=== PATIENT | female | born 1940 | race Caucasian/White ===

== ENCOUNTER 2018-07-04 13:37 | Inpatient (IN) ==
[2018-07-04] MEDS ORDERED: NS 1,000 ML IV ONE ×3 (13:52→19:29)
[2018-07-04] MEDS ORDERED: SODIUM CHLORIDE 0.9% INJ ONE (13:53)
[2018-07-04] MEDS ORDERED: PROTONIX IV ONE (13:53)
--- NOTE | 2018-07-04 14:28 | PROVIDER DOCUMENTATION ---
HPI-General Adult - General Chief Complaint: GI Bleed Stated Complaint: GI bleed Time Seen by Provider: 07/04/18 13:45 Source: patient Allergies/Adverse Reactions: Patient Allergies Allergy/AdvReac Type Severity Reaction Status Date / Time No Known Allergies Allergy Verified 07/04/18 15:18 - History of Present Illness -Gen Adult Nature of Presenting Problems: Pt. is 78 yof that presents with c/o sudden onset of GI bleeding from the mouth and rectum. Pt. also reports lower abd pain. Pt. denies any other symptoms. Pt. has dried blood that is dark in appearance and is around her mouth and on her lower extremities. Location of Pain/Injury: reports: abdomen. denies: none, head, face, mouth, neck, chest, upper extremity, hand(s), back, pelvis, genitalia, lower extremity, feet, upper body, lower body, generalized, other Pain Radiation: reports: no radiation. denies: arm(s), back, buttocks, chest, epigastric, feet, groin, jaw, flank (L), legs (lower), LLQ, LUQ, neck, periumbilical, flank (R), RLQ, RUQ, shoulder(s), scapula, scrotal, sternal notch, suprapubic, legs (upper), urethral, vaginal, other Quality of Pain: reports: aching, cramping. denies: pressure, sharp, tightness Severity: reports: mild. denies: moderate, severe Onset/Duration: reports: abrupt, just prior to arrival Timing: reports: still present. denies: improving, gone now, constant, getting worse Context/Activities at Onset: reports: none. denies: light activity, moderate activity, vigorous activity, recent emotional stress, recent physical stress, recent trauma history, possible bad food, cold exposure, eating, out of country travel, rest, sleep, sexual activity, other Modifying Factors: improves with: nothing Associated Symptoms: reports: diarrhea, vomiting. denies: denies symptoms, anxiety, arm pain, back/neck pain, chest pain, constipation, cough, diaphoresis, dizziness, EENT symptoms, fatigue, fever/chills, genitourinary problems, headaches, heartburn, joint pain, loss of appetite, malaise, muscle aches, sinus congestion/drainage, nausea, rash, seizure, shortness of breath, sensory/motor loss, pain with inspiration, swelling/mass in abdomen, syncope, weakness, trouble walking, other Similar Symptoms Previously?: No Recently seen or treated by another doctor?: No Review of Systems - Adult - REVIEW OF SYSTEMS - ADULT Constitutional: reports: no symptoms reported Eyes: reports: no symptoms reported Ears, Nose, Mouth & Throat: reports: no symptoms reported Cardiovascular: reports: no symptoms reported Respiratory: reports: no symptoms reported Gastrointestinal: reports: see HPI, abdominal pain, hematemesis, rectal bleeding , vomiting. denies: difficulty swallowing, frequent heartburn, nausea Genitourinary: reports: no symptoms reported Musculoskeletal: reports: no symptoms reported Integumentary: reports: no symptoms reported Neurological: reports: no symptoms reported Psychiatric: reports: no symptoms reported Past History - Adult - PAST MEDICAL HISTORY-ADULT Review of Records: reports: Old Records Reviewed, Nursing Assessment Review, Medications Reviewed, Social history reviewed & non-contributory. - IMMUNIZATION STATUS Childhood Immunizations: See Nurse Assessment Flu Vaccine: See Nurse Assessment - FAMILY HISTORY Family History: reviewed, not pertinent - SOCIAL HISTORY Smoking: non-smoker Physical Exam-General - PHYSICAL EXAM-ADULT Initial Vital Signs Reviewed: Yes - CONSTITUTIONAL General Appearance: alert, no apparent distress, obese. negative: thin, anxious, slow to respond, obtunded, combative - EYES Eyes: PERRL/EOMI, pink conjunctivae. negative: photophobia, subconjunctival hemorrhage, sunken eyes - HEAD, EARS, NOSE, MOUTH & THROAT HENMT: normocephalic/atraumatic, moist mucous membranes. negative: angioedema, frontal tenderness, maxillary tenderness - NECK Neck: non-tender, full range of motion, supple, normal inspection. negative: lymphadenopathy, tender lateral, thyromegaly - RESPIRATORY Respiratory: lungs clear, normal breath sounds, increased rate. negative: crackles, rales, rhonchi, stridor, wheezing - CARDIOVASCULAR Cardiovascular: normal peripheral pulses, no edema, no gallop, tachycardia. negative: regular rate, rhythm, friction rub, irregularly irregular - GASTROINTESTINAL (ABDOMEN) Abdominal Exam: normal bowel sounds, soft, tenderness (Lower abdomen). negative: guarding, rigid, rebound, hernia, mass - GENITOURINARY Female Genitalia/Pelvic Exam: deferred Rectal Exam: normal rectal tone, blood streaked stool Hemoccult Exam: heme positive stool - LYMPHATIC Lymphatic: no adenopathy. negative: axilla node tender, cervical node tenderness - MUSCULOSKELETAL Back Exam: normal inspection, no CVA tenderness, no vertebral tenderness. negative: muscle spasm, swelling, vertebral tenderness Extremity: normal gait, normal inspection. negative: deformity, erythema, inflammation, swelling, tenderness Peripheral Pulses: radial (R): 2+, radial (L): 2+ - SKIN Integumentary: normal turgor, warm/dry, pallor. negative: cyanosis, erythema, jaundice, mottled, swelling, tenderness - NEUROLOGIC Neurologic: grossly normal, no motor/sensory deficits. negative: aphasia, focal weakness, motor weakness, sensory deficit - PSYCHIATRIC Psych/Mental Status: normal mood/affect, normal thought content, normal thought process, oriented x 3. negative: anxious, paranoid, tearful Progress - PLAN OF CARE/RESULTS Progress/Plan/Lab Results: Vital Signs - 8 hr 07/04/18 13:43 07/04/18 13:46 07/04/18 13:50 Temperature Pulse Rate 118 H 117 H 115 H Respiratory Rate 28 H 26 H 23 Blood Pressure 115/62 O2 Sat by Pulse Oximetry 07/04/18 13:52 07/04/18 14:00 07/04/18 14:10 Temperature 97.2 F L Pulse Rate 118 H 115 H 115 H Respiratory Rate 18 20 20 Blood Pressure 115/62 O2 Sat by Pulse Oximetry 98 Orders Category Date Time Status Saline Loc NOW Care 07/04/18 13:48 Active Straight Catheterization ORDERED Care 07/04/18 14:21 Active CHEST-PORTABLE [RAD] Stat Exams 07/04/18 13:50 Taken AMYLASE [CHEM] Stat Lab 07/04/18 14:01 Ordered CBC WITH ELECTRONIC DIFF [HEME] Stat Lab 07/04/18 14:01 Ordered COMPREHENSIVE METABOLIC PANEL [CHEM] Stat Lab 07/04/18 14:01 Ordered LIPASE [CHEM] Stat Lab 07/04/18 14:01 Ordered OCCULT BLOOD NON-FECES Stat Lab 07/04/18 13:49 Uncollected OCCULT BLOOD SCREENING [STOOL] Stat Lab 07/04/18 13:49 Uncollected PROTIME WITH INR [COAG] Stat Lab 07/04/18 14:01 Ordered PTT [COAG] Stat Lab 07/04/18 14:01 Ordered TYPE & SCREEN [BBK] Stat Lab 07/04/18 14:04 Ordered URINALYSIS W/POSS RFLX CULT [URINALYSIS] Stat Lab 07/04/18 13:49 Uncollected 0.9% Sodium Chloride Inj [Ns] 1,000 ml Med 07/04/18 13:52 Active IV 125 mls/hr Pantoprazole [Protonix] Med 07/04/18 13:53 Discontinued 40 mg IV NOW ONE Sodium Chloride 0.9% Med 07/04/18 13:53 Discontinued 10 ml INJ NOW ONE EKG [EKG] Stat Ther 07/04/18 13:48 Ordered Laboratory Tests 07/04/18 07/04/18 07/04/18 14:29 14:29 14:40 WBC 15.64 H RBC 3.16 L Hgb 9.9 L Hct 32.0 L MCV 101.3 H MCH 31.3 H MCHC 30.9 L RDW Std Deviation 14.2 Plt Count 335 MPV 10.8 H Immature Gran % (Auto) 0.4 Neut % (Auto) 88.7 H Lymph % (Auto) 7.9 L [place] % (Auto) 2.9 Eos % (Auto) 0.0 Baso % (Auto) 0.1 Immature Gran # (Auto) 0.06 H Neut # (Auto) 13.89 H Lymph # (Auto) 1.23 [place] # (Auto) 0.45 Eos # (Auto) 0.00 Baso # (Auto) 0.01 PT 13.7 INR 0.97 PTT (Actin FS) 23.4 Urine Source CATH Urine Color YELLOW Urine Turbidity CLEAR Urine pH 5.0 Ur Specific [place] 1.023 Urine Protein TRACE A Ur Glucose (Stick) NEGATIVE Ur Ketones (Stick) 10 A Urine Blood NEGATIVE Urine Nitrite NEGATIVE Urine Bilirubin NEGATIVE Urobilinogen Dipstick NORMAL Urine Leukocytes NEGATIVE Urine WBC (Auto) <10 Urine RBC (Auto) <10 U Epithel Cells (Auto) <10 Urine Bacteria (Auto) NEGATIVE Discussed results and plan of care with patient. Patient agrees with plan and verbalizes understanding. Dr. Zavala at bedside for placement of central line. Result Diagrams: 07/04/18 14:29 07/04/18 14:29 - XRAY 1 XRAY Study: Chest ([facility] [address] , [address], [place] [id number] Department of Imaging Patient: JULIETTE ODONNELL Date: 07/04/18#: [id number] : 1940DM Status: REG [facility]#: [id number] Age/Sex: 78/FRoom/Bed: Loc: ED Ordering Physician: Shanique Barry Family Physician: Abhinav Richard MD Reason for Procedure: admit Signed CHEST-PORTABLE - 07/04/2018 INDICATION: admit COMPARISON: None FINDINGS: The lungs are normally expanded and clear. Heart size and mediastinal contours are normal. No pneumothorax or pleural effusion. IMPRESSION: Negative exam. Electronically signed by Wagner Vera 07/04/2018 2:34 PM 07/04/18 1434 Interpreting Physician: Wagner Vera MD Dictated Date/Time: 07/04/18 1430 cc: Shanique Barry; Abhinav Richard MD) XRAY Interpretation: See note - CONSULTS/PCP/HOSPITALIST Notification #1 *Consult/PCP/Hospitalist*: Dr. Melo Time Discussed: 16:43 Reason/Comments: Admission Consult Disposition: Will see in ED, Admit #2 Consult: Dr. Hsu Time Discussed: 16:44 Reason/Comments: Consult Departure - Departure Date of Disposition Decision: 07/04/18 Time of Disposition Decision: 14:39 DIAGNOSIS: GI bleed Qualifiers: GI bleed type/associated pathology: unspecified gastrointestinal hemorrhage type Qualified Code(s): K92.2 - Gastrointestinal hemorrhage, unspecified Acute renal failure Qualifiers: Acute renal failure type: unspecified Qualified Code(s): N17.9 - Acute kidney failure, unspecified Disposition: ADMITTED INPATIENT 09 Certified Medical Emergency: Emergent Condition: Stable Referrals and Follow-Ups: Abhinav Richard MD [Primary Care Provider] - - Critical Care Note This patient required my direct & personal management of CC.: No Attestation - Physician/ KARISSA Attestation Patient care was provided by Advanced Practice Provider:: Yes Advanced Practice Provider:: Shanique Barry Advanced Practice Provider documentation review:: The Mid-level provider documentation, treatment plan and medical decision making was reviewed by the physician who agrees with all treatment and medical decision making by the MLP. The physician spent face to face time with patient:: Yes Advanced Practice Provider documentation review:: Supervising physician onsite and consulted in the evaluation and care of this patient. The physician did have a face to face encounter with the patient.
--- NOTE | 2018-07-04 14:36 | Diag Imaging Result Doc PS360 ---
CHEST-PORTABLE - 07/04/2018 INDICATION: admit COMPARISON: None FINDINGS: The lungs are normally expanded and clear. Heart size and mediastinal contours are normal. No pneumothorax or pleural effusion. IMPRESSION: Negative exam. Electronically signed by Wagner Vera 07/04/2018 2:34 PM
[2018-07-04 14:42] LABS: BASO# 0.01 X1000 (0.0-0.2); BASO% 0.1 % (0.0-0.8); HEMOGLOBIN 9.9 g/dL (12.0-16.0); IMM GRAN# 0.06 X1000 (0.0-0.04); IMM GRAN% 0.4 % (0.0-0.5); LYMPH# 1.23 X1000 (1.2-3.4); LYMPH% 7.9 % (20.5-51.1); MCH 31.3 PG (27-31); MCHC 30.9 g/dL (33-37); MCV 101.3 FL (81-99); MONO# 0.45 X1000 (0.11-0.59); MONO% 2.9 % (1.7-9.3); MPV 10.8 FL (7.4-10.4); NEUT# 13.89 X1000 (1.4-6.5); NEUT% 88.7 % (42.2-75.2); PLT 335 X1000 (130-400); RBC 3.16 XMIL (4.2-5.4); RDW 14.2 % (11.5-14.5); WBC 15.64 X1000 (4.8-10.8)
[2018-07-04 14:48] LABS: URINE SOURCE CATH
[2018-07-04 14:51] LABS: INR 0.97; PROTIME 13.7 Seconds (11.0-16.0); PTT 23.4 Seconds (22.3-41.8)
[2018-07-04 14:54] LABS: BILIRUBIN URINE NEGATIVE (NEGATIVE); BLOOD URINE NEGATIVE (NEGATIVE); COLOR YELLOW; GLUCOSE URINE NEGATIVE (NEGATIVE); KETONE URINE 10 mg/dL (NEGATIVE); LEUKOCYTES URINE NEGATIVE (NEGATIVE); NITRITE URINE NEGATIVE (NEGATIVE); PROTEIN URINE TRACE mg/dL (NEGATIVE); SP GRAVITY URINE 1.023; TURBIDITY URINE CLEAR (CLEAR); UROBILINOGEN URINE NORMAL (NORMAL)
[2018-07-04 14:56] LABS: UR EPITHELIAL CELLS <10 /HPF (<10); URINE BACTERIA NEGATIVE /HPF; URINE RBC <10 /HPF (<10); URINE WBC <10 /HPF (<10)
[2018-07-04 15:33] LABS: ALB/GLOB RATIO 1.5; ALBUMIN 3.3 g/dL (3.5-5.0); CALCIUM 9.7 mg/dL (8.8-10.2); CREATININE 1.8 mg/dL (0.5-0.9); POTASSIUM 4.2 mmol/L (3.5-5.1); TOTAL BILIRUBIN 0.19 mg/dL (0.20-1.00); TOTAL PROTEIN 5.5 g/dL (6.3-8.3)
[2018-07-04] MEDS: PROTONIX 80 MG in NS 80 ML IV SCH (16:00)
[2018-07-04] MEDS ORDERED: MORPHINE IV ONE ×2 (16:21→17:21)
[2018-07-04] MEDS ORDERED: MORPHINE ONE (16:23)
[2018-07-04] MEDS ORDERED: XYLOCAINE 1% INJ ONE (17:05)
[2018-07-04] MEDS ORDERED: XYLOCAINE 1% ONE (17:07)
[2018-07-04] MEDS ORDERED: NEO-SYNEPHRINE ONE (18:58)
[2018-07-04] MEDS ORDERED: SODIUM CHLORIDE 0.9% 20 ML ONE (18:58)
[2018-07-04] MEDS ORDERED: XYLOCAINE-MPF 2% ONE (18:58)
[2018-07-04] MEDS ORDERED: ROBINUL ONE (18:58)
[2018-07-04] MEDS ORDERED: DIPRIVAN 1% ONE (19:01)
[2018-07-04] MEDS ORDERED: ZOFRAN ONE (19:10)
--- NOTE | 2018-07-04 19:11 | Diag Imaging Result Doc PS360 ---
CHEST-PORTABLE - 07/04/2018 6:37 PM INDICATION: central line placement COMPARISON: 2:17 PM FINDINGS: There is a new right subclavian central line in good position with the catheter tip at the lower SVC. The lungs are clear. Heart size is normal. No pneumothorax or pleural effusion. IMPRESSION: No acute disease or complication. Electronically signed by Wagner Vera 07/04/2018 7:09 PM
[2018-07-04] MEDS ORDERED: FENTANYL ONE (19:28)
[2018-07-04] MEDS ORDERED: EPINEPHRINE SYRINGE ONE (19:39)
[2018-07-04] MEDS ORDERED: AMIDATE ONE (20:03)
--- NOTE | 2018-07-04 20:03 | HISTORY AND PHYSICAL ---
CHIEF COMPLAINT: Was throwing up blood and passage of blood. This is a 78-year-old female who has really minimal medical problems I think just high blood pressure. 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 She came in because of sudden onset bleeding from the mouth and rectum, throwing up dark tarry substance and passing black tarry substance. She is on Plavix for a stroke history. No cardiac history that I am aware of. She has no GI issues. Family is not at the bedside and patient is a little bit altered I think just because of hypotension so it is difficult to say. Her workup in the ER consistent with a GI bleed. Her white count is elevated, hemoglobin and hematocrit was 9 and 31. Coags were normal. A little bit of kidney dysfunction. She was admitted for acute GI bleed with shock possibly hemorrhagic. PAST MEDICAL HISTORY: 1. History of CVA. 2. Hypertension. She has not had any admissions here. PAST SURGICAL HISTORY: She again reports the cholecystectomy, she has had orthopedic procedures on both her ankles. SOCIAL HISTORY: No alcohol. No tobacco. Again, she is a retired ER nurse. FAMILY HISTORY: Denies any GI issues. ALLERGIES: No known drug allergies. MEDICATIONS: I do not have a list at this time. REVIEW OF SYSTEMS: No weight loss or no chest pain. She has had some abdominal discomfort mostly in her lower quadrants. She did report the use of Aleve. Otherwise, negative times a 10 point review of systems. PHYSICAL EXAMINATION: VITAL SIGNS: Blood pressure currently 117/69, although dropped to 80/54, heart rate of 106, respiratory rate of 20, temperature was afebrile at 97.2. GENERAL: A pale lady, appears ill and confused, tachycardic. She has dried blood on her lips and actually dark smears on her lower extremities. EYES: Pupils equal, round, reactive to light. Sclerae are anicteric. Extraocular movements were intact. NECK: Supple. PULMONARY: Clear to auscultation bilaterally. GI: Soft, nontender, nondistended. Bowel sounds are positive. She was heme positive per ER exam. NEUROLOGIC: Nonfocal. Cranial nerves 2-12 were grossly intact. MUSCULOSKELETAL: 4/5 in all 4 extremities. She did have 1+ pitting edema in her lower extremities per lymphatic exam. SKIN: She had distinct pallor. LABORATORY DATA: Hemoglobin and hematocrit of 9.9 and 32, white count of 15, platelets 335,000. Coags normal. BUN and creatinine of 78 and 1.8. Alkaline phosphatase 202. Urine was clear. Chest x-ray. She had central line placed. Chest x-ray was clear but we did get just plain films. PROBLEM LIST: This is a 78-year-old female presenting with shock and upper gastrointestinal bleed possibly nonsteroidal anti-inflammatory drugs induced associated with Plavix . 1. Upper gastrointestinal bleed. We have initiated Protonix. She has gotten fluid resuscitation, although it has been limited because of her lack of intravenous access tried multiple times in the emergency room including femoral line placement but could not be placed. We did accomplish central line placement in the emergency room . Dr. Segovia has evaluated the patient. I saw him when I was evaluating the patient and planning for urgent EGD and we will go from there. We will continue supportive care with transfusion and IV resuscitation. Repeat her lactate here this evening. 2. Shock is likely related to low blood pressure and likely blood loss. I do not think per se she has an infection. She does not clearly have an infection in urine or chest x-ray. I think this just may be related to her blood loss. We will continue volume resuscitation and use vasopressors if required. At this point her blood pressure has stabilized. I do not think she has had any transfusion but I anticipate she will need them so we will continue to follow. 3. Hypertension. Obviously at this point we are going to hold any further medications and follow. 4. Anemia likely posthemorrhagic. We will pursue workup and monitor. She is macrocytic so we will check other parameters for any disposition pending her clinical status. I would say she is critically ill with acute hemorrhage shock and needing urgent intervention and 32 minute critical care time. cc: Myke Melo MD
[2018-07-04 20:19] LABS: IRON SATURATION 54 %; TIBC 250 ug/dL; TOTAL IRON 134 ug/dL (49-151); UNBOUND IRON 116 ug/dL (112-346)
[2018-07-04 20:42] LABS: FERRITIN 74 ng/mL (13-150)
[2018-07-04] MEDS ORDERED: TYLENOL PO PRN (20:58)
[2018-07-04 21:02] LABS: RETIC% 2.94 % (0.8-2.1)
[2018-07-04 21:17] LABS: HEMATOCRIT 23.3 % (37.0-47.0); HEMOGLOBIN 7.2 g/dL (12.0-16.0)
--- NOTE | 2018-07-04 22:00 | GASTROENTEROLOGY CONSULTATION ---
DATE: 07/04/2018 REQUESTING PHYSICIAN: Myke Melo MD REASON FOR CONSULT: GI bleed. 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 She presented to the emergency room after she had an episode of hematemesis and melenic stool. The patient tells me that she has not been feeling well since midnight last night, but this morning she had started vomiting. Apparently she had noticed coffee-ground material in it and her found her in a pool of melenic stool and coffee-ground emesis. She was convinced to come to the emergency room after she started feeling dizzy and lightheaded as well. She has been on Mobic, and takes Plavix as well as aspirin for TIAs. She denies any history of peptic ulcer disease, has not had any upper or lower GI bleed. She has never had any EGD or colonoscopies earlier. She reports no fever or chills. She has not had any headache, but did feel weak and dizzy. She has had no chest pain, shortness of breath or palpitations. Denies any cough, sputum or hemoptysis. Denies dysuria, polyuria or hematuria. PAST MEDICAL HISTORY: Significant for hypertension, hypothyroidism and history of CVA. PAST SURGICAL HISTORY: She has had ankle surgery. A kyaw was put in her right femur. Also had history of cholecystectomy, tonsillectomy and adenoidectomy. MEDICATIONS: Prior to hospitalization, she has been on Zyrtec, atorvastatin, Mobic, Valtrex, Welchol, [place], famotidine, Singulair, Plavix. She has also taken Aleve. ALLERGIES: No drug allergies. SOCIAL HISTORY: The patient is and lives with her . She claims she does not drink, does not use illicit drugs. REVIEW OF SYSTEMS: As per HPI as above. PHYSICAL EXAMINATION: On examination, very pleasant white female, appears to be slightly distressed. She had just had a central line placed for IV axis. Vital signs: On presentation to the emergency room she was afebrile. Her temperature was 97.2 degrees, pulse was 118 per minute, breathing 18, blood pressure was 115/62. She is 5 feet 4 inches tall. She is 165 pounds. In the ER her blood pressure dropped to 81/54, requiring fluid resuscitation. Head is atraumatic, normocephalic. Eyes: Conjunctivae is pale. Sclerae anicteric. Nares are patent. No discharge. Mouth: Buccal mucosa is dry and has some dried blood on oral mucosa. Neck is supple. No lymphadenopathy or thyromegaly. Chest bilaterally symmetrical. It is moving with respirations. She has harsh breath sounds bilaterally. The central line is placed in the right subclavian area. No rhonchi could be heard. Heart sounds are audible. No murmur. Abdomen is full, soft. It is nontender. I could not appreciate any masses or organomegaly. No ascites noted. Bowel sounds are audible. No pedal edema, cyanosis or clubbing was noted. [employer] is grossly intact. No sensory or motor deficit. LABORATORY DATA: Labs reviewed, which showed WBC of 15.64, hemoglobin 9.9, hematocrit 32.0, MCV 101.3, platelets were 335,000. PT was 13.7, INR 0.97, PTT 23.4. Sodium 140, potassium 4.2, chloride 103, bicarbonate 22, BUN is 78, creatinine 1.8, glucose 189. Transaminases normal. Urinalysis was negative. DIAGNOSTIC DATA: Chest x-ray: Central line was in place, and otherwise nothing acute was noted. IMPRESSION AND PLAN: This is a 78-year-old white female who has been taking Plavix and Mobic. Takes Aleve on top of that. She has presented with a history of hematemesis, coffee-ground emesis and melenic stool. She was hemodynamically unstable and hemoglobin and hematocrit were found to be 9.9 in 32.0. Most likely she has upper gastrointestinal bleed. Has had significant blood loss, resulting in her hemodynamic instability. At this point she does not seem to be actively bleeding. She appears to be stabilized some after hydration. Her hemoglobin and hematocrit needs to be drawn since her hydration. Because of her sudden drop and hemodynamic instability, I would proceed with an urgent esophagogastroduodenoscopy for therapeutic purposes. In the meantime, she has already been started on a Protonix drip. I would continue that, and depending on the findings of her esophagogastroduodenoscopy further plans will be made. I have explained the findings and plan to the patient. The risks, benefits and alternatives of esophagogastroduodenoscopy were explained. She understood and agreed to proceed. She will be scheduled as soon as possible. cc: MD Myke Anderson MD Akram Haggag, MD
--- NOTE | 2018-07-04 22:11 | Diag Imaging Result Doc PS360 ---
ABDOMEN FLAT/UPRIGHT - 07/04/2018 INDICATION: pain COMPARISON: None FINDINGS: There is a right subclavian central venous line in good position. The lungs are fairly clear. There are cholecystectomy clips. There is a nonobstructive bowel gas pattern. No free air or abnormal calcifications. IMPRESSION: No acute disease. Electronically signed by Wagner Vera 07/04/2018 10:08 PM
--- NOTE | 2018-07-04 22:23 | OPERATIVE NOTE ---
PROCEDURE DATE: 07/04/2018 PROCEDURE: EGD, hemorrhage control and biopsy. PREOPERATIVE DIAGNOSIS: 1. Acute gastrointestinal bleed. 2. Anemia secondary gastrointestinal bleed. POSTOPERATIVE DIAGNOSIS: Gastric ulcers, gastric ulcer with visible vessel treated. Biopsy done. MEDICATION USED: MAC as per Anesthesia. SCOPE: Pentax gastroscope. BLOOD LOSS: Was less than 1 mL. HISTORY: This is a 78-year-old white female presented to the ER with a history of hematemesis, coffee-grounds emesis and melenic stool was found to be anemic. She has been on Plavix, Mobic and Aleve. She was hemodynamically unstable. EEG is being done for diagnostic as well as therapeutic purposes after stabilization. PROCEDURE: Informed consent obtained from the patient. The procedure, risks, benefits, alternatives were explained in layman's terms. She understood. All her pertinent questions were answered. Patient was brought to the endoscopy unit and was premedicated as per Anesthesia. After adequate sedation while she was lying in left lateral position the gastroscope was introduced into the posterior pharynx and advanced under direct vision into the esophagus. Esophagus in its entire length appeared to be normal. GE junction was noted at about 40 cm from the incisor. No esophagitis, webs, rings, varices were seen. Scope was then passed through the esophagus into the stomach. Stomach was examined both in straight and retroflexed view which showed small amounts of altered blood adherent to the gastric mucosa. Vigorous irrigation and suctioning was employed to cleanse the stomach completely and to visualize the gastric mucosa. The cardia, fundus and body appeared to be normal in the antrum however 3 ulcers were seen, 1 in the superior aspect and 2 on the inferior aspect of the antrum along the greater curve. The ulcers were clean based punched-out except for 1 on the anterior aspect had a visible vessel noted at the edge of the ulcer. There was no active bleeding seen. Using a sclerotherapy needle 1:10,000 epinephrine was injected aliquots of 0.5 mL. A total of 1 mL were injected getting good blanching there. After that using a monopolar wire the vessel was cauterized by applying cautery. Good crater was formed. No bleeding was noted. After that the scope was then passed through the pylorus into the duodenal bulb and then to 2nd portion duodenum which appeared to be normal. No ulcer, AVM or masses were seen in the duodenum. The scope was then removed. Patient tolerated the procedure well. No complications were noted and the patient was transferred to recovery area in a stable condition. IMPRESSION: Three gastric ulcers ranging from 8 mm to about 2 cm. One ulcer had visible vessel which was treated with epinephrine and cautery. Biopsies were obtained to check for Helicobacter pylori and neoplasia. RECOMMENDATIONS: 1. I will continue her on Protonix drip. 2. Recheck hemoglobin and hematocrit transfuse if necessary. 3. Continue hemodynamic resuscitation. 4. Follow up the biopsy report. If Helicobacter pylori is positive will treat. In the meantime, I will hold Plavix and aspirin along with her Mobic and advised no Aleve and later on will start her back on aspirin alone and Plavix at a later date. However would strongly recommend to avoid Mobic and Aleve altogether if possible. I have explained the findings and plan to the patient's who was present bedside. He understood, all his pertinent questions answered. cc: MD Myke Queen MD MTDD
[2018-07-05] MEDS: NS 1,000 ML IV SCH ×2 (00:39→08:53)
[2018-07-05] MEDS: PROTONIX 80 MG in NS 80 ML IV SCH ×4 (00:41→22:53)
[2018-07-05] MEDS ORDERED: NEO-SYNEPHRINE 50 MG in NS 250 ML IV SCH (02:45)
[2018-07-05 04:11] LABS: BASO# 0.01 X1000 (0.0-0.2); BASO% 0.1 % (0.0-0.8); EOS# 0.01 X1000 (0.0-0.7); EOS% 0.1 % (0.0-10.0); HEMATOCRIT 28.3 % (37.0-47.0); IMM GRAN# 0.04 X1000 (0.0-0.04); IMM GRAN% 0.3 % (0.0-0.5); LYMPH# 1.82 X1000 (1.2-3.4); LYMPH% 15.3 % (20.5-51.1); MCHC 31.8 g/dL (33-37); MCV 97.6 FL (81-99); MONO# 1.21 X1000 (0.11-0.59); MONO% 10.2 % (1.7-9.3); MPV 10.5 FL (7.4-10.4); NEUT# 8.77 X1000 (1.4-6.5); PLT 143 X1000 (130-400); RDW 15.8 % (11.5-14.5); WBC 11.86 X1000 (4.8-10.8)
[2018-07-05 04:41] LABS: ALB/GLOB RATIO 1.6; ALBUMIN 2.4 g/dL (3.5-5.0); CALCIUM 7.1 mg/dL (8.8-10.2); CREATININE 1.5 mg/dL (0.5-0.9); POTASSIUM 4.2 mmol/L (3.5-5.1); TOTAL BILIRUBIN 0.2 mg/dL (0.20-1.00); TOTAL PROTEIN 3.9 g/dL (6.3-8.3)
[2018-07-05 06:59] LABS: HEMATOCRIT 30.6 % (37.0-47.0); HEMOGLOBIN 9.7 g/dL (12.0-16.0)
[2018-07-05] MEDS ORDERED: DOPAMINE 400 MG/D5W 400 MG/500 ML IV.SOLN IV SCH (08:30)
[2018-07-05] MEDS: D5 1/2 NS 1,000 ML IV SCH ×2 (11:18→18:33)
--- NOTE | 2018-07-05 11:52 | PROGRESS NOTE ---
DATE: 07/05/2018 SUBJECTIVE: She seems to be doing okay today. OBJECTIVE: Blood pressure is 85/46, although currently I think were blood pressure of 101/49, heart rate of 85, respiratory rate of 24, saturations of 93%. Clinically, she seems to be doing okay; blood pressure is still on the low side. DIAGNOSTIC STUDIES: Hemoglobin and hematocrit have stabilized after transfusion, which I think she has gotten 2 units of blood. She had several gastric ulcers with visible vessel. PROBLEM LIST: 1. Acute gastrointestinal (GI) bleed with multiple ulcers including one with a visible vessel, multiple gastric ulcers. She is currently on a PPI. We are continuing supportive care, transfusion, crystalloid hydration, and we will follow. Greatly appreciate Dr. Segovia's urgent care. He evaluated the patient last night and did an endoscopy last night. 2. Shock likely related to hemorrhage. She is not on pressors currently, but may require them. 3. Acute kidney injury. Likely related to dehydration. We will continue hydration and follow closely. May get an abdominal ultrasound tomorrow just to see if there are any issues with her kidneys, but I think it is probably related to that and possibly NSAIDs. 4. Anemia associated with acute gastrointestinal (GI) bleed. We will continue to monitor closely. Her anemia parameters are all normal so it is likely just an acute bleed. 5. Bradycardia. Unclear what her source is. She was a bit bradycardic yesterday, maybe related to her shock state. I will get an echocardiogram, and we will continue to follow. Again, dopamine if required. DISPOSITION: Pending her clinical status. cc: Myke Melo MD
[2018-07-05 11:56] LABS: HEMATOCRIT 29.6 % (37.0-47.0); HEMOGLOBIN 9.2 g/dL (12.0-16.0)
--- NOTE | 2018-07-05 13:08 | GASTROENTEROLOGY PROGRESS NOTE ---
DATE: 07/05/2018 SUBJECTIVE: Patient has had no further signs of bleeding. An EGD was done last evening, 07/05/2018. Findings of 3 gastric ulcers. One ulcer had a visible vessel that was treated. Biopsies are pending. OBJECTIVE: Vital Signs: Temperature 97.4 degrees, pulse 76, respirations 21, blood pressure 97/38. General: Patient is awake, alert, no acute distress. LABORATORY: Hematology 11.86, hemoglobin 9, hematocrit 28.3, MCV 97.6, platelet 143,000. Chemistry: Sodium 149, potassium 4.2, chloride 120, CO2 20, BUN 67, creatinine 1.5, glucose 109. ASSESSMENT AND PLAN: 1. Gastrointestinal bleed. 2. Gastric ulcers with visible vessel treated. PLAN: Continue to monitor hemoglobin and hematocrit. Monitor for any further active bleeding. Continue proton pump inhibitor. Recommend to avoid Aleve and Mobic. Continue to hold Plavix and aspirin for now. Further plans to be made according to her progress. I have discussed this case with Dr. Segovia. Dictated by NIKHIL Benítez for Dewey Segovia MD cc: NIKHIL Moeller MD Alexis R. Penot, MD
[2018-07-05 15:10] LABS: UR PROT RANDOM 15.6 mg/dL
[2018-07-05 17:34] LABS: HEMOGLOBIN 8.3 g/dL (12.0-16.0)
[2018-07-05] MEDS ORDERED: DOPAMINE 800 MG/D5W 800 MG/500 ML IV.SOLN IV SCH (21:15)
[2018-07-05] MEDS: NORCO-10 PO SCH (22:39)
[2018-07-05 23:57] LABS: HEMATOCRIT 27.7 % (37.0-47.0); HEMOGLOBIN 8.6 g/dL (12.0-16.0)
[2018-07-06] MEDS: D5 1/2 NS 1,000 ML IV SCH ×3 (03:26→19:37)
[2018-07-06] MEDS: NORCO-10 PO SCH (04:52)
[2018-07-06 06:38] LABS: BASO# 0.02 X1000 (0.0-0.2); BASO% 0.2 % (0.0-0.8); EOS# 0.25 X1000 (0.0-0.7); EOS% 2.9 % (0.0-10.0); HEMATOCRIT 27.2 % (37.0-47.0); HEMOGLOBIN 8.4 g/dL (12.0-16.0); IMM GRAN# 0.04 X1000 (0.0-0.04); IMM GRAN% 0.5 % (0.0-0.5); LYMPH# 1.49 X1000 (1.2-3.4); LYMPH% 17.1 % (20.5-51.1); MCH 30.3 PG (27-31); MCHC 30.9 g/dL (33-37); MCV 98.2 FL (81-99); MONO# 0.75 X1000 (0.11-0.59); MONO% 8.6 % (1.7-9.3); MPV 10.9 FL (7.4-10.4); NEUT# 6.17 X1000 (1.4-6.5); NEUT% 70.7 % (42.2-75.2); PLT 140 X1000 (130-400); RBC 2.77 XMIL (4.2-5.4); RDW 16.4 % (11.5-14.5); WBC 8.72 X1000 (4.8-10.8)
--- NOTE | 2018-07-06 06:54 | EKG Report ---
Test Performed on : 07/05/2018 08:42:06 AM Test Reason : bradycardia Blood Pressure : / mmHG Vent. Rate : 082 BPM Atrial Rate : 082 BPM P-R Int : 204 ms QRS Dur : 062 ms QT Int : 412 ms P-R-T Axes : 041 -15 181 degrees QTc Int : 481 ms Normal sinus rhythm. Low voltage QRS T wave abnormality, consider anterior ischemia Prolonged QT Abnormal ECG When compared with ECG of 04-JUL-2018 21:15, (Unconfirmed) Nonspecific T wave abnormality has replaced inverted T waves in Lateral leads Unconfirmed Result
[2018-07-06 07:08] LABS: CALCIUM 7.1 mg/dL (8.8-10.2); MAGNESIUM 1.4 mg/dL (1.5-2.7); PHOSPHORUS 2.3 mg/dL (2.7-4.5); POTASSIUM 3.3 mmol/L (3.5-5.1)
--- NOTE | 2018-07-06 07:33 | EKG Report ---
Test Performed on : 07/04/2018 9:15:22 PM Test Reason : Admit Blood Pressure : / mmHG Vent. Rate : 095 BPM Atrial Rate : 095 BPM P-R Int : 162 ms QRS Dur : 060 ms QT Int : 362 ms P-R-T Axes : 043 -01 147 degrees QTc Int : 454 ms Normal sinus rhythm. ST & T wave abnormality, consider anterolateral ischemia Abnormal ECG No previous ECGs available Unconfirmed Result
--- NOTE | 2018-07-06 07:43 | Diag Imaging Result Doc PS360 ---
CHEST-PORTABLE - 07/06/2018 INDICATION: dyspnea COMPARISON: 07/04/2018 FINDINGS: Stable right central line. There is a trace left pleural effusion. No significant infiltrates. Heart size is normal. There is pulmonary vascular congestion. IMPRESSION: Trace left pleural effusion. Mild pulmonary vascular congestion. Electronically signed by Wagner Vera 07/06/2018 7:40 AM
[2018-07-06] MEDS: PROTONIX 80 MG in NS 80 ML IV SCH ×2 (08:17→17:43)
[2018-07-06] MEDS ORDERED: MAGNESIUM SULFATE 2 GM/S.W.I. 2 GM/50 ML IVPB IV ONE (10:15)
[2018-07-06] MEDS ORDERED: NS 500 ML IV SCH (10:15)
[2018-07-06] MEDS ORDERED: POTASSIUM CHLORIDE 40 MEQ/SWI 40 MEQ/100 ML IVPB IV ONE (10:15)
[2018-07-06] MEDS ORDERED: POTASSIUM PHOSPHATE 40 MEQ in NS 250 ML IV ONE (10:17)
[2018-07-06] MEDS ORDERED: NS 500 ML ONE (10:18)
[2018-07-06] MEDS: NORCO-10 PO PRN ×2 (10:33→15:33)
--- NOTE | 2018-07-06 10:37 | EKG Report ---
Test Performed on : 07/06/2018 10:31:45 AM Test Reason : bradycardia/hypotension Blood Pressure : / mmHG Vent. Rate : 071 BPM Atrial Rate : 071 BPM P-R Int : 156 ms QRS Dur : 068 ms QT Int : 410 ms P-R-T Axes : 042 018 104 degrees QTc Int : 445 ms Normal sinus rhythm. T wave abnormality, consider anterior ischemia Abnormal ECG When compared with ECG of 05-JUL-2018 08:42, (Unconfirmed) No significant change was found Unconfirmed Result
[2018-07-06] MEDS: NS 500 ML IV SCH (10:41)
[2018-07-06 12:23] LABS: HEMATOCRIT 27.2 % (37.0-47.0); HEMOGLOBIN 8.5 g/dL (12.0-16.0)
--- NOTE | 2018-07-06 13:03 | GASTROENTEROLOGY PROGRESS NOTE ---
DATE: 07/06/2018 SUBJECTIVE: Patient denies any visible bleeding. Per nurse, she has had hypotension and bradycardia. Cardiology consult has been placed. Patient had an EGD on 07/04/2018 with gastric ulcers and a visible vessel treated. OBJECTIVE: Vital Signs: Temperature 97.1 degrees, pulse 60, respirations 19, blood pressure 107/45. General: The patient is awake and alert, in no acute distress. Abdomen: Soft. Positive bowel sounds. Nontender. She does complain of flank tenderness to bilateral sides. Laboratory: Hematology: WBC 8.72, hemoglobin 8.4, hematocrit 27.2, MCV 98.2. Chemistry: Sodium 145, potassium 3.3, chloride 116, CO2 20, BUN 32, creatinine 1.0, glucose 113. ASSESSMENT AND PLAN: 1. Acute gastrointestinal bleeding with multiple ulcers and a visible vessel treated. Continue proton pump inhibitor. 2. Acute kidney injury. Continue fluids. 3. Anemia. Continue to monitor. 4. Bradycardia and hypotension, cardiology consulted. We will continue to follow along during her hospital course. Further plans to be made according to her progress. There has been no evidence of active bleeding since the procedure. I have discussed this case with Dr. Segovia. Dictated by NIKHIL Benítez for Dewey Segovia MD cc: NIKHIL Moeller MD [facility]
[2018-07-06] MEDS: LASIX IV SCH (13:04)
[2018-07-06 13:08] LABS: URINE SOURCE CLEAN CATCH
[2018-07-06 13:13] LABS: BILIRUBIN URINE NEGATIVE (NEGATIVE); BLOOD URINE TRACE (NEGATIVE); COLOR STRAW; GLUCOSE URINE NEGATIVE (NEGATIVE); KETONE URINE NEGATIVE (NEGATIVE); LEUKOCYTES URINE SMALL (NEGATIVE); NITRITE URINE NEGATIVE (NEGATIVE); PROTEIN URINE NEGATIVE (NEGATIVE); SP GRAVITY URINE 1.003; TURBIDITY URINE CLEAR (CLEAR); UROBILINOGEN URINE NORMAL (NORMAL)
[2018-07-06 13:14] LABS: UR EPITHELIAL CELLS <10 /HPF (<10); URINE BACTERIA NEGATIVE /HPF; URINE RBC <10 /HPF (<10)
--- NOTE | 2018-07-06 13:15 | CARDIOLOGY CONSULTATION ---
DATE: 07/06/2018 CHIEF COMPLAINT: Abdominal flank pain, hypogastric discomfort. REASON FOR CONSULTATION: Bradycardia, hypotension. HISTORY: Ms. Nolan is a 78-year-old, female who presented to the hospital on July 04 at 1:40 p.m. complaining of a syncopal episode associated with a massive gastrointestinal bleed. The patient says that she woke up, finding herself covered in blood. Her brought her to the emergency room. Initial evaluation showed a hemoglobin level of 9.9 and then dropping to 7.2. She has been given 2 units of blood. She underwent endoscopy by Dr. Segovia on July 04 which shows evidence of a gastric ulcer with a visible vessel treated, biopsy done. Subsequently, the patient has become hypotensive and relatively bradycardic. She has been given pain medications by mouth. She denies having any chest pain or upper abdominal pain. Her pain started last night. It is at the level of the flank and it radiates to the hypogastric area. PAST MEDICAL HISTORY: Positive for a stroke that affected her visual field on the left side. That happened some time ago. She has hypertension. She does have hyperlipidemia. SURGICAL HISTORY: She just had a right thigh orthopedic procedure done at [facility]. She has had a cholecystectomy in the past. She had ankle surgery in the past. SOCIAL HISTORY: She is and retired. 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 Not a smoker. FAMILY HISTORY: Noncontributory. ALLERGIES: Negative. HOME MEDICATIONS: She had been taking clopidogrel since the stroke, Lipitor 80 daily, cetirizine 10 mg daily, hydrocodone, meloxicam, montelukast, as well as acyclovir, famotidine, and Welchol. REVIEW OF SYSTEMS: Other than what I have described, noncontributory. She has been using a walker at home to get around. She is supposed to go for physical therapy to recover from the orthopedic procedure. I do not have any specifics as to what was done but she says that they placed a kyaw in the thigh. PHYSICAL EXAMINATION: Vital Signs: Blood pressure 130/43, pulse 66, temperature 97.1 degrees, respirations 11. General: She is awake, alert. Somewhat pale. There are some bruises on the upper extremities. She has a central line in the right subclavian site. HEENT: Unremarkable. Chest: Clear to auscultation and percussion. Heart: Heart sounds regular and rhythmic. I do not hear a gallop or murmur. Abdomen: Nontender. Extremities: Showed no edema. Neurological Examination: Follows commands. Moves 4 extremities. Blood Work: They just nilo a followup hemoglobin. Her last one done at 5:44 this morning was 8.4 g percent. White cell count 8720. Sodium 145, potassium 3.3, BUN 32, creatinine 1.0. Magnesium was 1.4, phosphorus 2.3. I believe Dr. Melo has put orders to replace magnesium. IMPRESSION: 1. Patient who presents with gastrointestinal bleeding, gastric ulcer treated by Dr. Segovia 2 days ago. She has anemia secondary to gastrointestinal bleeding. I suspect the hypotension is also secondary to the same. She is probably hypovolemic. 2. Bradycardia. The reason for this is unclear. She does have an abnormal electrocardiogram that shows diffuse repolarization abnormality. However, her electrolytes are abnormal. 3. She has also been given opiates which can cause bradycardia. 4. Hyperlipidemia. 5. Hypertension. 6. Previous stroke. That increases her risk for cardiovascular disease. RECOMMENDATION: At this time, I will suggest to get an echocardiogram. We will do a CT of the abdomen with oral contrast. I am concerned that she may have had also a retroperitoneal hematoma. We will follow up EKG in the morning. Further advice will be forthcoming. cc: Edgardo Estrella MD [facility]
--- NOTE | 2018-07-06 13:23 | OPERATIVE NOTE ---
PROCEDURE DATE: 07/04/2018 INDICATION: IV access PROCEDURE: Right subclavian central line placement. We were unable to get IV access femoral veins were attempted for IV access central line placement but could not be obtained. DESCRIPTION OF PROCEDURE: The patient was prepped in sterile fashion. Procedure was could considered to be emergent because she was hypotensive and actively having a GI bleed. The patient underwent central line placement after local anesthesia with 1% lidocaine. We were able to cannulate the vessel after 1 pass. Blood flow was fairly sluggish though even in Trendelenburg. Triple-lumen was passed under modified Seldinger technique. Good venous return from all ports although again a little bit sluggish because of her low blood volume and hypotension. Chest x-ray confirmed placement. The patient tolerated the procedure without difficulty. cc: Myke Melo MD
[2018-07-06 13:33] LABS: CK INDEX 1.1 (0.0-2.5); CK-MB 2.21 ng/mL (0.0-5.0)
--- NOTE | 2018-07-06 14:46 | Diag Imaging Result Doc PS360 ---
EXAM: CT ABD/PELVIS W/ORAL CONT ONLY INDICATION: intraabdominal bleed/hypotension/ TECHNIQUE: This exam was performed using automated exposure control, adjustment of mA or kV according to patient size, and/or use of iterative reconstruction technique. COMPARISON: None. FINDINGS: There are small bilateral pleural effusions and there is bibasilar atelectasis. There has been a prior cholecystectomy. There is a tiny low dense focus at the inferior aspect of the left hepatic lobe, nonspecific but possibly a tiny cyst. The liver is essentially unremarkable, otherwise. The spleen, pancreas, and adrenal glands are grossly unremarkable. There is mild bilateral pelvocaliectasis versus parapelvic cysts associated with both kidneys there are no renal or ureteral stones and there is no dilation of the ureters. The urinary bladder is unremarkable. The reproductive tract is unremarkable as imaged. There is trace free fluid layering in the pelvis that is nonspecific. There is a very small hiatal hernia. No focal bowel wall thickening is identified and there is no evidence of bowel obstruction. The remainder of the GI tract is essentially unremarkable. There is no free abdominal gas identified. There are somewhat dilated subcutaneous varices at the anterior aspect of the lower pelvis. There is an L1 vertebral body compression deformity that is probably chronic. IMPRESSION: 1.Trace nonspecific free fluid layering in the pelvis. 2.Bilateral small pleural effusions and bibasilar atelectasis. 3.Mildly dilated renal collecting system versus parapelvic cysts bilaterally. This is probably chronic. 4.Other incidental/nonacute findings detailed above. Electronically signed by Rylan Lundberg 07/06/2018 2:44 PM
--- NOTE | 2018-07-06 16:15 | Diag Imaging Result Doc PS360 ---
EXAM: US ABDOMEN-COMPLETE INDICATION: gi bleed, renal failure COMPARISON: None. FINDINGS: There has been a prior cholecystectomy. The common bile duct is normal in diameter. The liver is grossly unremarkable. Portal venous flow is hepatopetal. The visualized pancreas is unremarkable. The aorta and IVC are grossly unremarkable. The spleen is unremarkable. The remaining collecting systems are mildly dilated bilaterally. This was also seen on a CT performed earlier today. The acuity is uncertain but it is probably chronic. The kidneys are unremarkable, otherwise. IMPRESSION: Bilateral mildly prominent renal collecting systems of unknown acuity but probably chronic. Grossly unremarkable, otherwise. Electronically signed by Rylan Lundberg 07/06/2018 4:13 PM
--- NOTE | 2018-07-06 21:55 | ECHO REPORT ---
ORDER DATE: 07/05/2018 MEASUREMENTS: 1. Left ventricular internal diameter in diastole 5.4. 2. End-systolic 3.6. 3. Septal thickness 1.0. 4. Left atrium 2.2. 5. Aortic root 3.3. SUMMARY: 1. Technically difficult study due to limited acoustic window quality. 2. Aortic valve without evidence of structural abnormality and appears to open adequately on 2- dimensional images. Peak gradient across the aortic valve is less than 10 mmHg. Mitral and tricuspid valves are without evidence of structural abnormality while pulmonic valve is not well demonstrated. There is trace mitral regurgitation, very mild tricuspid regurgitation. The estimated systolic PA pressure by Doppler is 25 mmHg. Aortic root is normal in size. 3. Normal left ventricular dimensions suggested. Estimated left ventricular ejection fraction appears to be at least 60%. No obvious regional wall motion abnormality can be appreciated. Left atrium appears mildly enlarged on 2-dimensional images. Right atrium and right ventricle are normal in size with grossly preserved right ventricular systolic function. 4. No pericardial effusion. 5. Appearance of inferior vena cava suggests normal central venous pressure. cc: MD Myke Lamas MD
[2018-07-07] MEDS: LASIX IV SCH ×2 (01:27→14:12)
[2018-07-07] MEDS: PROTONIX 80 MG in NS 80 ML IV SCH ×2 (03:54→13:26)
[2018-07-07] MEDS: D5 1/2 NS 1,000 ML IV SCH (03:54)
[2018-07-07] MEDS: ZOFRAN IV PRN ×2 (05:28→10:35)
[2018-07-07] MEDS: NORCO-10 PO PRN ×2 (05:29→23:02)
[2018-07-07 05:49] LABS: BASO# 0.01 X1000 (0.0-0.2); BASO% 0.2 % (0.0-0.8); EOS# 0.62 X1000 (0.0-0.7); EOS% 9.8 % (0.0-10.0); HEMATOCRIT 28.8 % (37.0-47.0); HEMOGLOBIN 9.1 g/dL (12.0-16.0); IMM GRAN# 0.04 X1000 (0.0-0.04); IMM GRAN% 0.6 % (0.0-0.5); LYMPH% 15.7 % (20.5-51.1); MCH 30.2 PG (27-31); MCHC 31.6 g/dL (33-37); MCV 95.7 FL (81-99); MONO# 0.47 X1000 (0.11-0.59); MONO% 7.4 % (1.7-9.3); MPV 10.1 FL (7.4-10.4); NEUT# 4.21 X1000 (1.4-6.5); NEUT% 66.3 % (42.2-75.2); PLT 142 X1000 (130-400); RBC 3.01 XMIL (4.2-5.4); RDW 15.3 % (11.5-14.5); WBC 6.35 X1000 (4.8-10.8)
[2018-07-07 07:49] LABS: CALCIUM 7.6 mg/dL (8.8-10.2); POTASSIUM 3.2 mmol/L (3.5-5.1)
--- NOTE | 2018-07-07 07:55 | EKG Report ---
Test Performed on : 07/07/2018 06:49:14 AM Test Reason : bradycardia/abnormal ECG Blood Pressure : / mmHG Vent. Rate : 073 BPM Atrial Rate : 073 BPM P-R Int : 172 ms QRS Dur : 066 ms QT Int : 420 ms P-R-T Axes : 056 -07 133 degrees QTc Int : 462 ms Normal sinus rhythm. T wave abnormality, consider anterolateral ischemia Abnormal ECG When compared with ECG of 06-JUL-2018 10:31, No significant change was found Unconfirmed Result
[2018-07-07] MEDS ORDERED: D5 1/4 NS 1,000 ML IV SCH (10:00)
[2018-07-07] MEDS: NS 500 ML IV SCH (10:05)
--- NOTE | 2018-07-07 14:26 | GASTROENTEROLOGY PROGRESS NOTE ---
DATE: 07/07/2018 SUBJECTIVE: Patient states she feels a little better than she did yesterday. She continues to have dopamine infusing for hypotension. She had an EGD on 07/04/2018 that showed gastric ulcers with a visible vessel, treated. Hemoglobin and hematocrit are stable today. OBJECTIVE: Vital Signs: Temperature 98.5 degrees, pulse 63, respirations 19, blood pressure 95/44. General: Patient is awake, alert, no acute distress. LABORATORY: Hematology: WBC 6.35, hemoglobin 9.1, hematocrit 28.8, MCV 95.7, platelet 142,000. Chemistry: Sodium 146, potassium 3.2, chloride 112, CO2 23, BUN 12, creatinine 1.0, glucose 104. ASSESSMENT AND PLAN: 1. Acute gastrointestinal bleeding with multiple ulcers and a visible vessel, treated. Continue proton pump inhibitor. Continue to monitor for any further signs of active bleeding. Monitor hemoglobin and hematocrit. 2. Acute kidney injury has improved. 3. Anemia is stable. Will continue to follow. 4. Bradycardia and hypotension. Patient has been seen by Cardiology. She also has dopamine infusing. 5. We will continue to follow during her hospital course. 6. Further plans will be made according to her progress. Continue PPI. Avoid NSAIDs. I have discussed this case with Dr. Segovia. Dictated by NIKHIL Benítez for Dewey Segovia MD cc: NIKHIL Moeller MD
[2018-07-07] MEDS ORDERED: PROTONIX IV SCH (15:16)
[2018-07-07] MEDS: SODIUM CHLORIDE 0.9% INJ SCH (15:59)
[2018-07-07] MEDS: PROTONIX IV SCH (15:59)
--- NOTE | 2018-07-07 19:03 | CARDIOLOGY PROGRESS NOTE ---
DATE: 07/07/2018 CHIEF COMPLAINT: Hypotension, tachycardia. SUBJECTIVE: Ms. Nolan has no complaints. She is feeling better. She is still requiring a tiny dose of dopamine. OBJECTIVE: Vital Signs: Blood pressure is 115/50, pulse 72, respirations 25, temperature 98.6. General: She is awake, alert and somewhat pale, in no distress. HEENT: Unremarkable. Chest: Clear to auscultation and percussion. Cardiovascular: Heart sounds regular and rhythmic. No click, gallop or murmur. Abdomen: Nontender and soft. No masses or hepatomegaly. Extremities: Show good pulses. No peripheral edema. Neurologic: Follows commands. Moves all 4 extremities. BLOOD WORK: Sodium 146, potassium 3.2, BUN 12, creatinine 1.0. White cell count 6350, hemoglobin 9.1, hematocrit 28.8. DIAGNOSTIC DATA: Echocardiogram from yesterday shows normal left ventricular systolic function. Pulmonary pressure is normal. The inferior vena cava is not dilated. There is no pericardial effusion. Pelvis/abdomen CT shows trace nonspecific free fluid layering in the pelvis. Of note, the density of the fluid is greater than just a simple effusion. Could be blood. There are bilateral small pleural effusions. Mildly dilated renal collection system versus parapelvic cysts bilaterally, probably chronic. The surgical specimen from the biopsy of the stomach showed chronic active gastritis with ulceration. EKG done today showed sinus rhythm with a nonspecific T- wave abnormality in the precordial leads. IMPRESSION: 1. Patient who suffered acute anemia from acute gastrointestinal bleeding, gastric ulcer. 2. Abnormal EKG. 3. Hypotension and bradycardia. Reason is unclear. RECOMMENDATIONS: From a cardiologic viewpoint, I agree with your management. We really need to optimize the patient's electrolytes, the sodium and potassium. I really do not have any further recommendations. The patient really needs to be managed as a case of acute GI bleeding and optimize her hemoglobin and whatever else can be optimized. At this point in time, there is no point in organizing an ischemic workup, since this patient could not be treated with any kind of blood thinner, given the presence of an active ulcer. Of note, her urine is growing gram-negative rods. The possibility of coincidental septicemia or endotoxemia cannot be excluded. This may have to be managed. The patient had acute renal failure at the time of presentation with high BUN and creatinine. She has an abnormal CT scan of the abdomen. Consider consulting Urology. At this time I am going to stand by, and if you need any further assistance, just give me a call, and we will go over this patient's issues. cc: Edgardo Estrella MD MTDD
[2018-07-08] MEDS: ZOFRAN IV PRN (03:46)
[2018-07-08] MEDS: PROTONIX IV SCH ×2 (03:46→15:39)
[2018-07-08 06:35] LABS: BASO# 0.01 X1000 (0.0-0.2); BASO% 0.2 % (0.0-0.8); EOS# 0.61 X1000 (0.0-0.7); EOS% 9.7 % (0.0-10.0); HEMATOCRIT 28.7 % (37.0-47.0); HEMOGLOBIN 9.1 g/dL (12.0-16.0); MCH 30.3 PG (27-31); MCHC 31.7 g/dL (33-37); MCV 95.7 FL (81-99); MPV 10.4 FL (7.4-10.4); NEUT# 4.14 X1000 (1.4-6.5); NEUT% 66.1 % (42.2-75.2); PLT 157 X1000 (130-400); RDW 15.1 % (11.5-14.5); WBC 6.26 X1000 (4.8-10.8)
[2018-07-08 07:13] LABS: AGAP 8; BUN 6 mg/dL (8-22); CHLORIDE 109 mmol/L (98-107); COSMO 282; CREATININE 0.8 mg/dL (0.5-0.9); ESTIMATED GFR > 60; GLUCOSE 91 mg/dL (70-104); MAGNESIUM 1.7 mg/dL (1.5-2.7); POTASSIUM 3.4 mmol/L (3.5-5.1); SODIUM 143 mmol/L (136-145); TCO2 26 mmol/L (25-35)
--- NOTE | 2018-07-08 07:58 | EKG Report ---
Test Performed on : 07/08/2018 07:43:36 AM Test Reason : bradycardia/abnormal ECG Blood Pressure : / mmHG Vent. Rate : 079 BPM Atrial Rate : 079 BPM P-R Int : 166 ms QRS Dur : 072 ms QT Int : 392 ms P-R-T Axes : 044 006 090 degrees QTc Int : 449 ms Normal sinus rhythm. T wave abnormality, consider anterior ischemia Abnormal ECG When compared with ECG of 07-JUL-2018 06:49, (Unconfirmed) No significant change was found Unconfirmed Result
[2018-07-08] MEDS: LASIX IV SCH (09:07)
[2018-07-08] MEDS: ROCEPHIN 1 GM in NS 50 ML IV SCH (10:19)
[2018-07-08] MEDS: NS 500 ML IV SCH (10:19)
--- NOTE | 2018-07-08 11:27 | PROGRESS NOTE ---
DATE: 07/08/2018 SUBJECTIVE: Patient has no major complaints. OBJECTIVE: Vital signs: Blood pressure 122/51, heart rate of 74, respiratory rate of 18, temperature 97.6 degrees. Cardiovascular: Regular rate and rhythm. Pulmonary: Bilateral breath sounds. Clear to auscultation. Gastrointestinal: Soft, nontender, nondistended. Bowel sounds are positive. LABORATORY DATA: White count is 6, hemoglobin 9, hematocrit 28, it has been stable now for 3-4 days. Potassium 3.4. Magnesium 1.7. Cortisol was normal; it was not low, and it was not high. I would expect it to be a little higher. Overall she is much improved. PROBLEM LIST: 1. Upper gastrointestinal bleed related to multiple gastric ulcers. Hemoglobin and hematocrit are stable. She is on b.i.d. PPI. We will continue to follow. 2. Shock with relative bradycardia. Her bradycardia tends to be more manifest at night. I believe she does have some degree of sleep apnea that will need to be worked up as an outpatient. 3. Acute kidney injury. That has essentially resolved. We will continue to follow closely. 4. Anemia associated with hemorrhage. Hemoglobin and hematocrit are stable. 5. Proteus and Klebsiella urinary tract infection. Her symptoms: She does describe some bladder fullness, so I think we are going to work on trying to get her situated. I am going to start Rocephin empirically, and we will follow. DISPOSITION: I think she is probably stable to go to the floor. She is off pressors. Blood pressure is improved. I think we will probably get her out of here. Disposition pending her clinical status. cc: Myke Melo MD
[2018-07-08] MEDS ORDERED: MILK OF MAGNESIA PO ONE (14:17)
[2018-07-08] MEDS ORDERED: WELCHOL PO SCH (14:26)
--- NOTE | 2018-07-08 15:02 | GASTROENTEROLOGY PROGRESS NOTE ---
DATE: 07/08/2018 SUBJECTIVE: The patient currently remains in the ICU but I believe she has transfer orders to a medical floor. She denies complaints. No further active bleeding noted. OBJECTIVE: Vital Signs: Temperature 98 degrees, pulse 86, respirations 17, blood pressure 112/68. LABORATORY DATA: Hematology: WBC 6.26, hemoglobin 9.1, hematocrit 28.7, MCV 95.7, platelet 157,000. Chemistry: Sodium 143, potassium 3.4, chloride 109, CO2 26, BUN 6, creatinine 0.8. ASSESSMENT AND PLAN: 1. Recent gastrointestinal bleeding. EGD had showed gastric ulcers with visible vessel treated. Continue PPI. Continue to monitor hemoglobin and hematocrit. Monitor for active bleeding. 2. Bradycardia and hypotension. Patient has been seen by Cardiology. She is off of vasopressors. I believe she will be transferred to a medical floor when bed available. 3. Anemia, stable. Continue to monitor. 4. Urinary tract infection. Started on antibiotics. PLAN: Patient has had no evidence of further active bleeding. Recommend she avoid NSAIDs, continue PPI twice daily. Patient states she has not had a bowel movement in several days. She usually takes a stool softener at home. If she is not on maintenance laxative, would recommend milk of magnesia 30 mL today and then start Mary-Colace two tablets at every night, adjust according to her response. We will continue to follow during her hospital course. Further plans to be made according to her progress. I have discussed this case with Dr. Segovia. Dictated by NIKHIL Benítez for Dewey Segovia MD cc: NIKHIL Moeller MD
--- NOTE | 2018-07-08 15:23 | Diag Imaging Result Doc PS360 ---
US RENAL 2 (RETROPER) COMPLETE - 07/08/2018 INDICATION: ?para pelvic cyst TECHNIQUE: COMPARISON: 07/06/2018 FINDINGS: Detail is poor. There is mild hydronephrosis versus peripelvic cysts present bilaterally. Renal sizes remain normal. Urinary bladder is mostly collapsed and otherwise normal. IMPRESSION: Mild hydronephrosis versus peripelvic cysts bilaterally. Appearance is indeterminate. Electronically signed by Wagner Vera 07/08/2018 3:21 PM
[2018-07-08] MEDS: SODIUM CHLORIDE 0.9% INJ SCH (15:39)
[2018-07-08] MEDS: MIRALAX PO SCH (16:07)
--- NOTE | 2018-07-08 19:39 | CONSULTATION ---
DATE OF CONSULTATION: 07/08/2018 ATTENDING AND REFERRING PHYSICIAN: Hospitalist. HISTORY OF PRESENT ILLNESS: This 78-year-old female was admitted with a GI bleed. Evaluation with CT of the abdomen and pelvis revealed possible mild bilateral dilation of the renal collecting system versus parapelvic cysts. A comment was made that it appeared chronic. Reviewing the films reveals no loss of parenchyma. PAST MEDICAL HISTORY: 1. Hypertension. 2. Peripheral vascular disease, status post CVA. 3. Gastric ulcers. 4. History of renolithiasis. CURRENT MEDICATIONS: Documented on the chart. PAST SURGICAL HISTORY: 1. Cholecystectomy. 2. Bilateral ankle surgery. 3. Right hip replacement. 4. Esophagogastroduodenoscopy with fulguration of ulcer vessels. 5. Right extracorporeal shockwave lithotripsy about 5 years ago. SOCIAL HISTORY: She denies tobacco or alcohol use. ALLERGIES: No known drug allergies. REVIEW OF SYSTEMS: She states that she usually feels well. She has had no flank pain, hematuria, or problems with urinary infections. She denies any other urologic surgery except the shockwave lithotripsy. She states she is only having pain in the epigastric area. PHYSICAL EXAMINATION: General: A normally developed, well-nourished, age apparent, white female, who is cooperative. HEENT: Normal for age. Lungs: Clear. Cardiovascular: Regular rate and rhythm. Abdomen: Mildly obese, soft. Direct tenderness in the epigastric area. No guarding or rebound. No hepatosplenomegaly or masses. Normal bowel sounds. Genitourinary: Deferred. Extremities: No clubbing or cyanosis. There is trace edema in the lower extremities. LABORATORY EVALUATION: Her creatinine on admission was 1.5 when she was hypovolemic. After hydration, her creatinine today is 0.8. Serum electrolytes are normal. White count of 6.26, hemoglobin is 9.1, hematocrit is 28.7, and platelets are 157,000. CT scan is as noted in the HPI. IMPRESSION: 1. 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 This could be due to bilateral distal ureteral stones, parapelvic cysts, or chronic mild dilation of the collecting system. 2. Renal insufficiency. It was probably due to hypovolemia, since her creatinine normalized after hydration. 3. History of kidney stones. PLAN: Discussed with patient her findings on the CT scan. She states she does not want anything invasive done, no matter what is found. She states she is not having any symptoms like a kidney stone. Plan for renal ultrasound. If that shows parapelvic cysts or just chronic dilation, nothing to add since her creatinine is normal. Thank you for this consultation. cc: Robert Adame MD
[2018-07-08] MEDS: PERICOLACE PO SCH (21:54)
[2018-07-08] MEDS: NORCO-10 PO PRN (21:54)
[2018-07-09] MEDS: PROTONIX IV SCH ×2 (02:49→16:43)
--- NOTE | 2018-07-09 07:03 | EKG Report ---
Test Performed on : 07/09/2018 06:52:11 AM Test Reason : bradycardia/abnormal ECG Blood Pressure : / mmHG Vent. Rate : 070 BPM Atrial Rate : 070 BPM P-R Int : 174 ms QRS Dur : 068 ms QT Int : 406 ms P-R-T Axes : 049 -03 074 degrees QTc Int : 438 ms Normal sinus rhythm. Nonspecific T wave abnormality Abnormal ECG When compared with ECG of 08-JUL-2018 07:43, No significant change was found Unconfirmed Result
[2018-07-09 07:54] LABS: BASO# 0.01 X1000 (0.0-0.2); BASO% 0.2 % (0.0-0.8); EOS# 0.67 X1000 (0.0-0.7); EOS% 11.1 % (0.0-10.0); HEMATOCRIT 29.5 % (37.0-47.0); IMM GRAN# 0.02 X1000 (0.0-0.04); IMM GRAN% 0.3 % (0.0-0.5); LYMPH# 1.39 X1000 (1.2-3.4); LYMPH% 23.1 % (20.5-51.1); MCHC 30.5 g/dL (33-37); MCV 98.3 FL (81-99); MONO# 0.48 X1000 (0.11-0.59); MPV 10.5 FL (7.4-10.4); NEUT# 3.45 X1000 (1.4-6.5); NEUT% 57.3 % (42.2-75.2); PLT 161 X1000 (130-400); RDW 15.5 % (11.5-14.5); WBC 6.02 X1000 (4.8-10.8)
[2018-07-09 08:17] LABS: CALCIUM 8.2 mg/dL (8.8-10.2); CREATININE 1.1 mg/dL (0.5-0.9); POTASSIUM 3.9 mmol/L (3.5-5.1)
[2018-07-09] MEDS: ROCEPHIN 1 GM in NS 50 ML IV SCH ×2 (08:27→10:40)
[2018-07-09] MEDS: SINGULAIR PO SCH (08:27)
[2018-07-09] MEDS: LIPITOR PO SCH (08:27)
[2018-07-09] MEDS: ZYRTEC PO SCH (08:27)
[2018-07-09] MEDS: MIRALAX PO SCH (08:27)
[2018-07-09] MEDS: NS 500 ML IV SCH (10:40)
--- NOTE | 2018-07-09 14:36 | PROGRESS NOTE ---
DATE: 07/09/2018 SUBJECTIVE: Patient resting in bed, has present in the room. OBJECTIVE: VITAL SIGNS: Temperature 98, pulse 71, respiratory rate 18, blood pressure is 112/39, oxygen saturation is 96%. HEENT: Atraumatic, normocephalic. CARDIOVASCULAR SYSTEM: S1, S2. RESPIRATORY SYSTEM: Has good evidence of good air entry bilaterally. ABDOMEN: Soft, nontender, bowel sounds heard. EXTREMITIES: No evidence of significant edema. CENTRAL NERVOUS SYSTEM: No obvious focal deficit noted. LABORATORY: WBC 6.02, hematocrit is 29.5, with a platelet count of 161. Sodium is 142, potassium 3.9, chloride is 107, bicarb is 27, BUN is 10, creatinine 1.1. Urine culture positive for Proteus mirabilis as well as Klebsiella pneumoniae. ASSESSMENT AND PLAN: 1. Gastrointestinal bleed. The patient denies any ongoing gastrointestinal bleed at this time. We will maintain on her a proton pump inhibitor, monitor her hemoglobin and hematocrit, transfuse PRBC if needed. 2. Acute kidney injury. This seems to have improved. Will continue to follow up on patient's renal function and maintain patient on intravenous fluids. 3. Urinary tract infection secondary to Proteus mirabilis as well as Klebsiella pneumoniae. Maintain patient on antibiotics. The patient is currently on Rocephin and both organisms are sensitive to cefazolin. 4. Anemia secondary to gastrointestinal bleed. Will follow up on hemoglobin and hematocrit, transfuse PRBC if necessary. 5. Chronic mild dilatation of the bilateral collecting systems/history of kidney stones. Aware. Urology consulted. 6. Hypothyroidism. Resume patient's levothyroxine. 7. Hypertension. Blood pressure has been on the low side. Will hold off antihypertensive medications at this time. 8. Deep venous thrombosis prophylaxis, sequential compression devices. 9. Gastrointestinal prophylaxis. Patient on proton pump inhibitor. cc: Robert Bass MD
--- NOTE | 2018-07-09 15:14 | GASTROENTEROLOGY PROGRESS NOTE ---
DATE: 07/09/2018 SUBJECTIVE: Ms. Nolan was resting comfortably. She denies any GI symptoms. She is tolerating her diet well. Her hemoglobin today is 9.0 and hematocrit 29.5, which were 9.1 and 28.7 yesterday. Her BUN has come down to 10. She is currently on a proton pump inhibitor. IMPRESSIONS: 1. Upper bleed, resolved. 2. Gastric ulcers, most likely nonsteroidal anti-inflammatory drug induced. Biopsy did not show any signs of H. pylori. PLAN: Continue proton pump inhibitor at least for 3 to 4 months. I have advised her to follow up with me in the office once discharged. She will need EGD to confirm healing of her gastric ulcer; that can be done 3 to [address] I have recommended she strongly avoid NSAIDs at all cost and will follow. cc: Dewey Segovia MD
[2018-07-09] MEDS: PERICOLACE PO SCH (21:09)
[2018-07-09] MEDS: NORCO-10 PO PRN (21:13)
[2018-07-10] MEDS: PROTONIX IV SCH (06:23)
[2018-07-10 07:35] VITALS: BP 106/52
[2018-07-10 09:08] LABS: BASO# 0.02 X1000 (0.0-0.2); BASO% 0.4 % (0.0-0.8); EOS% 12.2 % (0.0-10.0); HEMATOCRIT 29.9 % (37.0-47.0); HEMOGLOBIN 9.3 g/dL (12.0-16.0); IMM GRAN# 0.05 X1000 (0.0-0.04); LYMPH% 24.4 % (20.5-51.1); MCH 30.6 PG (27-31); MCHC 31.1 g/dL (33-37); MCV 98.4 FL (81-99); MONO# 0.48 X1000 (0.11-0.59); MONO% 9.8 % (1.7-9.3); MPV 9.8 FL (7.4-10.4); NEUT# 2.56 X1000 (1.4-6.5); NEUT% 52.2 % (42.2-75.2); PLT 190 X1000 (130-400); RBC 3.04 XMIL (4.2-5.4); RDW 15.4 % (11.5-14.5); WBC 4.91 X1000 (4.8-10.8)
[2018-07-10 09:34] LABS: AGAP 9; BUN 12 mg/dL (8-22); CALCIUM 8.4 mg/dL (8.8-10.2); CHLORIDE 106 mmol/L (98-107); COSMO 286; CREATININE 0.9 mg/dL (0.5-0.9); ESTIMATED GFR > 60; GLUCOSE 86 mg/dL (70-104); POTASSIUM 3.9 mmol/L (3.5-5.1); SODIUM 144 mmol/L (136-145); TCO2 29 mmol/L (25-35)
[2018-07-10] MEDS: SINGULAIR PO SCH (09:54)
[2018-07-10] MEDS: LIPITOR PO SCH (09:54)
[2018-07-10] MEDS: ZYRTEC PO SCH (09:54)
[2018-07-10] MEDS: ROCEPHIN 1 GM in NS 50 ML IV SCH (09:54)
[2018-07-10] MEDS: MIRALAX PO SCH (09:56)
[2018-07-10] MEDS: NS 500 ML IV SCH (09:56)
[2018-07-10] MEDS ORDERED: VALTREX PO SCH (11:00)
--- NOTE | 2018-07-10 15:07 | GASTROENTEROLOGY PROGRESS NOTE ---
DATE: 07/10/2018 SUBJECTIVE: Patient has been moved out of the ICU to the medical floor. She is sitting up in a chair in no acute distress. She denies any further bleeding. She had an EGD that showed gastric ulcers with visible vessel treated. OBJECTIVE: Vital Signs: Temperature 98.2 degrees, pulse 64, respirations 19, blood pressure 106/52. General: Patient is awake and alert, no acute distress. She is sitting up in a chair. She states that she has walked in the halls with physical therapy. LABORATORY: Hematology: WBC 4.91, hemoglobin 9.3, hematocrit 29.9, MCV 98.4, platelets 190. Chemistry: Sodium 144, potassium 3.9, chloride 106, CO2 29. BUN 12, creatinine 0.9, glucose 86. ASSESSMENT AND PLAN: Recent gastrointestinal bleeding. Esophagogastroduodenoscopy had shown gastric ulcers with a visible vessel treated. Continue proton pump inhibitor, but will change from intravenous to oral. Continue to avoid nonsteroidal anti-inflammatory drugs. Recommend she follow up with us in the office after discharge. She will need to continue her proton pump inhibitor after discharge and would recommend a repeat esophagogastroduodenoscopy in 3 to 4 months to confirm healing of her gastric ulcers. Patient voices understanding. I have discussed this case with Dr. Segovia. Dictated by NIKHIL Benítez for Dewey Segovia MD cc: NIKHIL Moeller MD [facility]
[2018-07-10] MEDS ORDERED: PRILOSEC PO SCH (21:00)
--- NOTE | 2018-07-11 08:37 | DISCHARGE SUMMARY ---
ADMISSION DATE: 07/04/2018 DISCHARGE DATE: 07/10/2018 DISCHARGE DIAGNOSES: 1. Upper gastrointestinal bleed secondary to bleeding gastric ulcer with visible vessel status post cauterization and epinephrine injection. 2. Anemia of acute blood loss. 3. Morbid obesity. 4. Hypothyroidism. 5. Urinary tract infection secondary to Proteus and Klebsiella. CONSULTATIONS REQUESTED DURING THIS HOSPITAL STAY: 1. GI consultation with Dr. Segovia. 2. Cardiology consultation with Dr. Estrella. IMAGIN. Abdominal ultrasound performed on 07/06/2018 that revealed bilateral mildly prominent renal collecting system, possibly chronic. 2. CT of the abdomen and pelvis which revealed bilateral small pleural effusions and bibasilar atelectasis. Mildly dilated renal collecting system versus parapelvic cyst bilaterally. HOSPITAL COURSE: Ms. Nolan is a 78-year-old female with a history of multiple medical problems who initially presented to the ER with a chief complaint of hematemesis and abdominal pain. The patient was admitted to the hospitalist service and GI was consulted. The patient was started on a Protonix drip and made NPO. The patient was taken to the endoscopy suite on 07/04/2018, at which time the patient was noted to have bleeding gastric ulcers. There was a visible vessel that was treated with epinephrine and cauterization. Also, biopsies were taken to check for H. pylori. The patient was started on proton pump therapy twice a day and her hemoglobin and hematocrit were monitored closely throughout the hospitalization. The patient was also noted to have a urinary tract infection that ultimately grew out Proteus and Klebsiella for which she was treated with Rocephin. The patient continued to improve clinically. The patient was also noted to have a dilated renal collecting system that was likely chronic in nature. The patient was assessed by the urologist as well. The patient continued to improve clinically and was ultimately cleared for discharge on 07/10/2018. DISCHARGE MEDICATIONS: 1. Mary-Colace 2 capsules oral at bedtime. 2. MiraLAX 17 g p.o. daily. 3. Omeprazole 40 mg p.o. twice a day. 4. Keflex 500 mg p.o. twice a day x5 days. 5. Valacyclovir 1000 mg oral daily. 6. Singulair 10 mg p.o. daily. 7. Bronson 10/325 one tab oral every 6 hours p.r.n. 8. Welchol 625 mg p.o. 4 times a day. DISCHARGE DIET: GI soft diet. ACTIVITY: As tolerated. FOLLOWUP INSTRUCTIONS: The patient will need to follow up with Dr. Segovia as scheduled by his clinic. The patient has been advised to avoid nonsteroidal anti-inflammatories. The patient has also been provided with a prescription for Protonix to be taken twice a day. cc: MD Abhinav River MD
== END 2018-07-10 14:57 | disposition home health service (06) | DRG 377 ==
LOC: SUPCPDRO → ED 13:37 → SUATTDRO 17:49 → ICU 17:49 → 3N 07-08 16:39
PROVIDERS: ATTEND Internal Medicine
PROC: EN.HEAT (2018-07-04 19:22)
CPT/HCPCS: 36430; 51701; 71010; 71045; 74019; 74020; 74176; 76700; 76770; 80048; 80053; 81001; 82150; 82270; 82533; 82550; 82553; 82607; 82728; 82746; 83540; 83550; 83605; 83690; 83735; 83880; 83935; 84100; 84156; 84300; 84466; 84484; 85014; 85018; 85025; 85045; 85610; 85730; 86850; 86900; 86901; 86920; 87040; 87077; 87088; 87186; 88305; 88312; 93005; 93010; 93306; 96365; 96366; 96375; 96376; 97110; 97162; 97530; 99285; A9270; C8929; C9113; J0171; J0696; J1265; J1940; J2270; J2370; J2405; J3010; J3475; J7030; J7040; J7050; P9016; P9612; Q9957; S0164